=== PATIENT | male | born 1995 | race Two or more races ===

== ENCOUNTER 2021-09-26 00:52 | Emergency (ER) | payer SELFPAY ==
[~2021-09-26] VITALS: Ht 182.9 cm; Wt 79.5 kg
[2021-09-26] MEDS: IBUPROFEN 800 MG TABLET PO ONE (01:35)
[2021-09-26] MEDS ORDERED: HYDROGEN PEROXIDE 118 ML SOLUTION ONE ×2 (01:38→02:09)
[2021-09-26 02:40] VITALS: BP 129/78
== END 2021-09-26 03:12 | disposition home or self-care (01) ==
LOC: EMS 00:52
DX: H61.21 Impacted cerumen, right ear (principal); H92.01 Otalgia, right ear
CPT/HCPCS: 69209; 99283